=== PATIENT | female | born 2005 | race Caucasian/White ===

== ENCOUNTER 2024-04-02 01:36 | Observation (INO) ==
--- NOTE | 2024-04-02 01:52 | Emergency Department Note ---
History of Present Illness General Chief complaint: Shortness of Breath/Dyspnea Stated complaint: SOB, THROAT PAIN Time Seen by Provider: 04/02/24 01:44 History of Present Illness Maximum Pain Intensity: 9 This 18-year-old female presents ER complaining of sore throat and difficulty speaking for the past day. No history of TRANSIT SPECIALIST. Patient denies chest pain, vomiting, diarrhea, injury to the area. She states she is healthy with no active medical problems. Home Medications Medication Instructions Recorded Confirmed Type norgestimate-ethinyl estradiol 1 tab PO DAILY 04/02/24 04/02/24 History 0.18 mg/0.215mg/0.25mg-35 mcg(28)tablet (Tri-Sprintec (28)) Allergies Allergy/AdvReac Type Severity Reaction Status Date / Time No Known Allergies Allergy Mild Unverified 04 18:53 Past Med/Surg History Problem List (Updated 04/02/24 @ 04:42 by Courtney Rojo PA-C) Influenza A (Acute) Peritonsillar abscess (Acute) Social History Smoking Status: Never smoker Preferred Language: Chilean Feels Safe at Home: Yes Review of Systems A total of 10 systems reviewed and were otherwise negative Physical Exam Vital Signs Vital Signs - 24 hr 04/02/24 01:39 04/02/24 01:49 04/02/24 01:49 Temperature 37 C Temperature Source Temporal Artery Scan Pulse Rate 96 H Pulse Rate [Apical] Pulse Rhythm Regular Pulse Rhythm [Apical] Pulse Strength Normal Pulse Strength [Apical] Respiratory Rate 18 Respiratory Effort / Characteristics Non-Labored Spontaneous Non-Labored Respiratory Depth Normal Normal Respiratory Pattern Regular Blood Pressure 136/86 Blood Pressure [Right Arm] Blood Pressure Mean 102 Blood Pressure Mean [Right Arm] Blood Pressure Position Sitting Blood Pressure Position [Right Arm] Pulse Oximetry 97 Oxygen Delivery Method Room Air Room Air Sepsis Recent Fever Within 48 Hours No Sepsis New/Unexplained Change in Mental Status N/A Sepsis Action Taken by Nursing No Action Required 04/02/24 01:56 04/02/24 03:30 Temperature Temperature Source Pulse Rate 100 H Pulse Rate [Apical] 101 H Pulse Rhythm Pulse Rhythm [Apical] Regular Pulse Strength Pulse Strength [Apical] Normal Respiratory Rate 18 Respiratory Effort / Characteristics Non-Labored Spontaneous Respiratory Depth Normal Respiratory Pattern Regular Blood Pressure Blood Pressure [Right Arm] 119/78 Blood Pressure Mean Blood Pressure Mean [Right Arm] 91 Blood Pressure Position Blood Pressure Position [Right Arm] Semi-fowlers Pulse Oximetry 97 Oxygen Delivery Method Room Air Sepsis Recent Fever Within 48 Hours Sepsis New/Unexplained Change in Mental Status Sepsis Action Taken by Nursing VITALS: Vitals are noted on the nurse's note and reviewed by myself. Vital signs stable. GENERAL: Pleasant female with a hoarse voice, in no acute distress, nondiaphoretic, well-developed well-nourished. SKIN: The skin was without rashes, erythema, edema, or bruising. There is no tenting of the skin. Capillary reflex less than 2 seconds. HEAD: Normocephalic atraumatic. EARS: External auditory canals clear EYES: Pupils equal round and reactive to light and accommodation. Conjunctivae without injection, sclerae without icterus. Extraocular movements intact. NOSE: Patent, no discharge. MOUTH: Mucous membranes moist. Pharynx with erythema without exudate. Left tonsil erythematous and enlarged concerning for developing abscess, uvula midline. Airway patent. Tongue does not deviate. NECK: Supple without nuchal rigidity. Left submandibular and cervical lymphadenopathy. No thyromegaly. Cervical spine is nontender. No JVD. HEART: Regular rate and rhythm LUNGS: Clear to auscultation bilaterally without wheezes, rales or rhonchi. No retractions or accessory muscle use. ABDOMEN: Positive bowel sounds x 4. Normal tympanic percussion. Soft, nontender, without masses or organomegaly. Agrawal sign negative. No guarding or rebound tenderness. No CVA tenderness MUSCULOSKELETAL: No muscle atrophy, erythema, or edema noted. NEURO: Patient was alert and oriented to person place and time. Normal sensation to light and sharp touch. No focal neurological deficits. Course Administered Medications Discontinued Medications Dexamethasone (Dexamethasone Sod Inj 4 Mg/Ml Vial) 10 mg IV NOW STA Stop: 04/02/24 01:50 Last Admin: 04/02/24 01:59 Dose: 10 mg Documented By: VIVEK Ampicillin Sodium/Sulbactam Sodium (Unasyn) 3,000 mg in 100 mls @ 200 mls/hr IV NOW STA Stop: 04/02/24 02:18 Last Infusion: 04/02/24 03:05 Dose: Infused Documented By: Admin: 04/02/24 02:01 Dose: 200 mls/hr Documented By: VIVEK Sodium Chloride (Nss) 1,000 mls @ 999 mls/hr IV .Q1H1M ONE Stop: 04/02/24 02:52 Last Infusion: 04/02/24 03:05 Dose: Infused Documented By: Admin: 04/02/24 01:59 Dose: 999 mls/hr Documented By: VIVEK Ioversol (Optiray 320 100ml) 100 ml IV ONCE ONE Stop: 04/02/24 03:07 Last Admin: 04/02/24 03:06 Dose: 93 ml Documented By: KAYLA Ketorolac Tromethamine (Ketorolac Tromethamine 15 Mg/Ml Vial) 10 mg IV NOW STA Stop: 04/02/24 01:53 Last Admin: 04/02/24 02:01 Dose: 10 mg Documented By: VIVEK Medical Decision Making Medical Records Attestation: I reviewed the patient's medical records. Home Medications Current Medication List: was personally reviewed by me Laboratory Data Attestation: I reviewed the patient's lab results. 04/02/24 01:57 04/02/24 01:57 Lab Results 04/02/24 04/02/24 04/02/24 Range/Units 01:47 01:50 01:57 WBC 24.46 H (4.8-10.8) K/ul RBC 4.66 (4.20-5.40) M/uL Hgb 12.4 (12.0-16.0) g/dl Hct 38.1 (37.0-47.0) % MCV 81.8 (80.0-100.0) fL MCH 26.6 (25.0-34.0) pg MCHC 32.5 (32.0-36.0) g/dL RDW Std Deviation 37.9 (36.4-46.3) fL RDW Coeff of Enma 12.7 (11.5-14.5) % Plt Count 680 H (130-400) K/uL MPV 8.4 L (9.4-12.4) fL Immature Gran % (Auto) 1.3 % Neut % (Auto) 72.4 % Lymph % (Auto) 19.4 % Green % (Auto) 5.6 % Eos % (Auto) 0.9 % Baso % (Auto) 0.4 % Neut # (Auto) 17.70 H (1.40-6.50) K/uL Lymph # (Auto) 4.74 H (1.20-3.40) K/uL Green # (Auto) 1.38 H (0.11-0.59) K/uL Eos # (Auto) 0.21 (0.00-0.50) K/uL Baso # (Auto) 0.11 (0.00-0.20) K/uL Immature Gran # (Auto) 0.32 H (0.01-0.20) K/uL Sodium 140 (136-145) mmol/L Potassium 3.6 (3.5-5.1) mmol/L Chloride 104 (98-107) mmol/L Carbon Dioxide 26 (21-32) mmol/L Anion Gap 10 (3-11) BUN 8 (6-23) mg/dl Creatinine 0.62 (0.6-1.2) mg/dl Est Cr Clr Drug Dosing 119.3 ml/min eGFR 131.48 BUN/Creatinine Ratio 12.9 (10-20) Glucose 108 H (70-99(Fasting)) mg/dl Calcium 10.0 (8.6-10.3) mg/dl Total Bilirubin 0.4 (0.2-1.0) mg/dl AST 13 (13-39) U/L ALT 8 (7-52) U/L Alkaline Phosphatase 77 (34-104) U/L Total Protein 8.2 (6.0-8.3) gm/dl Albumin 4.1 (3.4-5.0) gm/dl Globulin 4.1 H (2.5-4.0) gm/dl Albumin/Globulin Ratio 1.0 (0.9-2) HCG, Qual Negative (Negative) Adenovirus (PCR) Not Detected (NotDetected) B. pertussis DNA (PCR) Not Detected (NotDetected) B.parapertussis DNA PCR Not Detected (NotDetected) C. pneumoniae DNA (PCR) Not Detected (NotDetected) Coronavirus OC43 (PCR) Not Detected (NotDetected) Coronavirus HKU1 (PCR) Not Detected (NotDetected) Coronavirus 229E (PCR) Not Detected (NotDetected) SARS-CoV-2 (PCR) Not Detected (NotDetected) Coronavirus NL63 (PCR) Not Detected (NotDetected) Human Metapneumovir PCR Not Detected (NotDetected) Influenza A Untype (PCR) DETECTED A (NotDetected) Influenza Type B (PCR) Not Detected (NotDetected) M. pneumoniae (PCR) Not Detected (NotDetected) Parainfluenza 1 (PCR) Not Detected (NotDetected) Parainfluenza 2 (PCR) Not Detected (NotDetected) Parainfluenza 3 (PCR) Not Detected (NotDetected) Parainfluenza 4 (PCR) Not Detected (NotDetected) RSV (PCR) Not Detected (NotDetected) Entero/Rhino (PCR) Not Detected (NotDetected) Group A Strep (PCR) NOT DETECTED (NotDetected) Imaging Data Attestation: I personally reviewed and interpreted this imaging study as follows: Radiologist's Impression: Soft Tissue Neck CT 04/02/24 01:49 EXAM: CT soft tissue neck w con CLINICAL HISTORY: Trismus, dysphagia, question left TRANSIT SPECIALIST. TECHNIQUE: CT scan of the neck was performed with administration of intravenous contrast. Sagittal and coronal reconstructions were obtained. 93 ml Optiray was administered for post-contrast images. One of the following dose reduction techniques were utilized for this exam: Automated exposure control, adjustment of the mA and/or kV according to patient size, and use of iterative reconstruction. Total DLP: 495 mGy*cm. COMPARISON: None. FINDINGS: Nasopharynx and Oropharynx:: An Ill-defined low-attenuation area measuring about 1.8 x 1.4 x 1.9 cm seen in the left peritonsillar region. It showed peripheral enhancement. Causing mild mass effect upon adjacent tissues and mild pharengeal narrowing. Larynx and Hypopharynx: Normal appearance of the laryngeal structures. Vocal cords are normal in appearance and movement. No masses or abnormal enhancement. Thyroid Gland: Normal size and morphology. No nodules or masses. Normal enhancement post-contrast. Salivary Glands: Parotid, submandibular, and sublingual glands are normal in size and appearance. No evidence of sialadenitis or masses. Lymph Nodes: Multiple enlarged upper deep cervical lymph nodes reaching about 2x2.5 cm on the right side level II. Vascular Structures: Normal enhancement of the carotid arteries, jugular veins, and other major vessels post-contrast. No evidence of vascular malformations, aneurysms, or thrombosis. Soft Tissues: Normal appearance of the soft tissues of the neck. No abnormal masses, swelling, or fluid collections. Bones: Normal appearance of the cervical spine and surrounding bony structures. No fractures, lytic or sclerotic lesions. Airway: Trachea and main bronchi are patent. No evidence of tracheal or bronchial stenosis or masses. IMPRESSION: 1. The above-described signs are suggestive of left peritonsillar abscess/necrotic area. Need clinical and lab correlation. 2. Mild cervical reactive lymphadenopathy. Electronically signed by Sulaiman Prado 04-02-2024 04:28 AM Chest X-Ray 04/02/24 01:52 EXAM: XR chest 1V portable CLINICAL HISTORY: Cough. TECHNIQUE: An X-ray image of the chest is obtained in AP projection. COMPARISON: No prior studies are available for comparison. FINDINGS: Pulmonary Parenchyma: Lungs are clear bilaterally. No evidence of consolidation, collapse, or focal opacities. No pulmonary nodules are identified. No evidence of pleural effusion or pleural thickening. Heart and Mediastinum: Heart size and shape are normal. No mediastinal widening or masses. No hilar or mediastinal lymphadenopathy. Bony Thorax: The bony thorax appears intact without fractures or deformities. Soft Tissues: Soft tissues overlying the chest wall are unremarkable. IMPRESSION: No acute cardiopulmonary abnormalities are identified. Electronically signed by Sulaiman Prado 04-02-2024 03:55 AM MDM Narrative Prior records/ancillary studies reviewed. Triage Nursing notes reviewed. Additional history obtained from nursing. The patient's history was concerning for a sore throat. Differential diagnosis: Etiologies such as viral syndrome, tonsillitis, streptococcal pharyngitis, mononucleosis, peritonsillar abscess, retropharyngeal abscess, otitis, pneumonia, influenza, as well as others were entertained. ER treatment provided: Unasyn, dexamethasone, IV fluids, Toradol On reassessment the patient felt better. Diagnostics interpreted by me: The labs Independently Interpreted by myself revealed leukocytosis, positive influenza A Imaging studies: Imaging was reviewed and read by radiology Consultation: A consultation was placed with ENT, Dr. Gonzalez and will evaluate the patient. He recommends medical admission Medicine was consulted and the case is discussed. Patient will be admitted to the medical service. This appears to be consistent with peritonsillar abscess he was also influenza A positive. Patient started antibiotics. She is given steroids. She was hydrated as above. ENT and medicine consulted. Patient will be admitted to the medical service. She is agreeable. She was placed on maintenance fluids. She was placed NPO. By the evaluation outlined above emergent etiologies such as retropharyngeal abscess, otitis, pneumonia, meningitis, urinary tract infection, sepsis, bacteremia, as well as others were deemed relatively unlikely. The pt informed about the findings as listed above. All questions were answered and pleased with the treatment. The chart was completed utilizing [employer] Speech voice recognition software. Grammatical errors, random word insertions, pronoun errors, and incomplete sentences are an occassional consequence of this system due to software limitations, ambient noise, and hardware issues. Any formal questions or concerns about the content, text, or information contained within the body of this dictation should be directly addressed to the physician clothing sales assistant for clarification. Impression & Plan Peritonsillar abscess, Influenza A Discharge Plan Visit Data Chief Complaint: Shortness of Breath/Dyspnea Stated Complaint: SOB, THROAT PAIN ED Provider: Toribio Buckner ED Midlevel Provider: Courtney Rojo Discharge Problem: Peritonsillar abscess, Influenza A Patient Disposition: Admitted As Inpatient Condition: Good Forms Stand Alone Forms: [facility] Prescriptions Prescriptions: No Action norgestimate-ethinyl estradiol [Tri-Sprintec (28)] 0.18/0.215/0.25 mg-35 mcg (28) tablet 1 tab PO DAILY Referrals Referrals: PCP,NO [Physician] -
[2024-04-02] MEDS: DEXAMETHASONE SOD INJ 4 MG/ML VIAL IV STA (01:59)
[2024-04-02] MEDS: SODIUM CHLORIDE 0.9% 1,000 ML IV ONE (01:59)
[2024-04-02] MEDS: AMPICILLIN/SULBACTAM SOD 3,000 MG/100 ML BAG IV STA (02:01)
[2024-04-02] MEDS: KETOROLAC TROMETHAMINE 15 MG/ML VIAL IV STA (02:01)
[2024-04-02 02:32] LABS: Basophils # (auto) 0.11 K/uL (0.00-0.20); Basophils % (auto) 0.4 %; Eosinophils # (auto) 0.21 K/uL (0.00-0.50); Eosinophils % (auto) 0.9 %; Hematocrit (blood only) 38.1 % (37.0-47.0); Hemoglobin 12.4 g/dl (12.0-16.0); Immature Granulocytes # (auto) 0.32 K/uL (0.01-0.20); Immature Granulocytes % (auto) 1.3 %; Lymphocytes # (auto) 4.74 K/uL (1.20-3.40); Lymphocytes % (auto) 19.4 %; Mean Corpuscular Hemoglobin 26.6 pg (25.0-34.0); Mean Corpuscular Hgb Conc 32.5 g/dL (32.0-36.0); Mean Corpuscular Volume 81.8 fL (80.0-100.0); Mean Platelet Volume 8.4 fL (9.4-12.4); Monocytes # (auto) 1.38 K/uL (0.11-0.59); Monocytes % (auto) 5.6 %; Neutrophils % (auto) 72.4 %; Platelet Count 680 K/uL (130-400); RDW Coefficient of Variation 12.7 % (11.5-14.5); RDW Standard Deviation 37.9 fL (36.4-46.3); Red Blood Count 4.66 M/uL (4.20-5.40); White Blood Count 24.46 K/ul (4.8-10.8)
[2024-04-02 02:36] LABS: Albumin Level 4.1 gm/dl (3.4-5.0); BUN Creatinine Ratio 12.9 (10-20); Bilirubin,Total 0.4 mg/dl (0.2-1.0); Creatinine Clr Calc Pharmacy 119.3 ml/min; Globulin 4.1 gm/dl (2.5-4.0); Potassium 3.6 mmol/L (3.5-5.1); Pregnancy Test, Serum Negative (Negative); Total Protein 8.2 gm/dl (6.0-8.3)
[2024-04-02 02:45] LABS: Adenovirus PCR Not Detected (NotDetected); Bordetella parapertussis PCR Not Detected (NotDetected); Bordetella pertussis PCR Not Detected (NotDetected); Chlamydia pneumoniae PCR Not Detected (NotDetected); Coronavirus 229E PCR Not Detected (NotDetected); Coronavirus CoV-2 (COVID19)PCR Not Detected (NotDetected); Coronavirus HKU1 PCR Not Detected (NotDetected); Coronavirus NL63 PCR Not Detected (NotDetected); Coronavirus OC43PCR Not Detected (NotDetected); Human Metapneumovirus PCR Not Detected (NotDetected); Influenza A NoSubtype PCR DETECTED (NotDetected); Influenza B PCR Not Detected (NotDetected); Mycoplasma pneumoniae PCR Not Detected (NotDetected); Parainfluenza Virus 1 PCR Not Detected (NotDetected); Parainfluenza Virus 2 PCR Not Detected (NotDetected); Parainfluenza Virus 3 PCR Not Detected (NotDetected); Parainfluenza Virus 4 PCR Not Detected (NotDetected); Respiratory Syncytial VirusPCR Not Detected (NotDetected); Rhinovirus/Enterovirus PCR Not Detected (NotDetected)
[2024-04-02] MEDS: OPTIRAY 320 100ml IV ONE (03:06)
--- NOTE | 2024-04-02 03:56 | XRay Report ---
EXAM: XR chest 1V portable CLINICAL HISTORY: Cough. TECHNIQUE: An X-ray image of the chest is obtained in AP projection. COMPARISON: No prior studies are available for comparison. FINDINGS: Pulmonary Parenchyma: Lungs are clear bilaterally. No evidence of consolidation, collapse, or focal opacities. No pulmonary nodules are identified. No evidence of pleural effusion or pleural thickening. Heart and Mediastinum: Heart size and shape are normal. No mediastinal widening or masses. No hilar or mediastinal lymphadenopathy. Bony Thorax: The bony thorax appears intact without fractures or deformities. Soft Tissues: Soft tissues overlying the chest wall are unremarkable. IMPRESSION: No acute cardiopulmonary abnormalities are identified. Electronically signed by Sulaiman Prado 04-02-2024 03:55 AM
--- NOTE | 2024-04-02 04:28 | CT Scan Report ---
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 TECHNIQUE: CT scan of the neck was performed with administration of intravenous contrast. Sagittal and coronal reconstructions were obtained. 93 ml Optiray was administered for post-contrast images. One of the following dose reduction techniques were utilized for this exam: Automated exposure control, adjustment of the mA and/or kV according to patient size, and use of iterative reconstruction. Total DLP: 495 mGy*cm. COMPARISON: None. FINDINGS: Nasopharynx and Oropharynx:: An Ill-defined low-attenuation area measuring about 1.8 x 1.4 x 1.9 cm seen in the left peritonsillar region. It showed peripheral enhancement. Causing mild mass effect upon adjacent tissues and mild pharengeal narrowing. Larynx and Hypopharynx: Normal appearance of the laryngeal structures. Vocal cords are normal in appearance and movement. No masses or abnormal enhancement. Thyroid Gland: Normal size and morphology. No nodules or masses. Normal enhancement post-contrast. Salivary Glands: Parotid, submandibular, and sublingual glands are normal in size and appearance. No evidence of sialadenitis or masses. Lymph Nodes: Multiple enlarged upper deep cervical lymph nodes reaching about 2x2.5 cm on the right side level II. Vascular Structures: Normal enhancement of the carotid arteries, jugular veins, and other major vessels post-contrast. No evidence of vascular malformations, aneurysms, or thrombosis. Soft Tissues: Normal appearance of the soft tissues of the neck. No abnormal masses, swelling, or fluid collections. Bones: Normal appearance of the cervical spine and surrounding bony structures. No fractures, lytic or sclerotic lesions. Airway: Trachea and main bronchi are patent. No evidence of tracheal or bronchial stenosis or masses. IMPRESSION: 1. The above-described signs are suggestive of left peritonsillar abscess/necrotic area. Need clinical and lab correlation. 2. Mild cervical reactive lymphadenopathy. Electronically signed by Sulaiman Prado 04-02-2024 04:28 AM
--- NOTE | 2024-04-02 04:41 | History & Physical Report ---
Date of Service April 02, 2024 Assessment & Plan (1) Peritonsillar abscess: (2) Leukocytosis: (3) Thrombocytosis: (4) Influenza A: Plan Patient is a 18-year-old female with no significant past medical history. She has had increasing throat pain and left ear pain for several days along with difficulty talking. She has been admitted for peritonsillar abscess. #peritonsillar abscess/ leukocytosis/thrombocytopenia soft tissue neck CT showed signs suggestive of left peritonsillar abscess/necrotic area along with mild cervical reactive lymphadenopathy strep negative, patient reported negative mono test 03/28 with [facility] Unasyn 3mg IV q6hr Tylenol prn, Toradol prn, and morphine 1 Mg (for pain not relieved by #1 and 2) given dexamethasone 10 Mg IV in ED; continue with dexamethasone 6 Mg IV daily N.p.o. IVF 1L NSS bolus in ED, continue with NSS at 80 mL/hour ENT consult - anticipate surgical management leukocytosis WBC 24.46 with neutrophil predominance and left shift on admission, 2/2 acute infection, not septic on admission Thrombocytopenia platelets 680 on admission; 2/2 acute infection, trend CBC #influenza A Patient with flulike symptoms since 03/20 - symptoms now resolved BioFire positive for influenza A and type on admission, subtype pending CXR negative Defer Tamiflu is outside window and symptoms are resolved Tylenol as needed isolation precautions VTE ppx: SCDs, defer chemical as able to ambulate and likely surgical management Diet: n.p.o. Dispo: MedSur Admission and Anticipated Discharge Date Admission Date: 04/02/24 History of Present Illness Chief Complaint: Shortness of breath Primary Care Provider: [facility] Patient is a 18-year-old female with no significant past medical history. She has had increasing throat pain and left ear pain for several days along with difficulty talking. She has been admitted for peritonsillar abscess. Patient seen at bedside. She was having extreme difficulty talking so limited history obtained. She had flulike symptoms from 03/20 to 03/21 and went to urgent care in which she tested negative for strep, flu, and COVID. She was having severe throat pain on 03/26 and went to [facility] 03/28 in which they suspected it was due to mono however she tested negative for mono 2 days later. Over the past few days she has had increasing throat pain and now left ear pain. She denies any fevers. She is feeling much better after receiving ED pain management. She does note a history of a lymphadenectomy me on her left side when she was roughly 1 years old. She denies fevers, chills, chest pain, shortness of breath, abdominal pain, nausea, vomiting, hearing loss. She denies past history of DM, COPD, asthma. Her only home medication is control. Patient is a [employer] student. Her mother is on her way and lives in [place] roughly 2 and half hours away. Allergies Allergy/AdvReac Type Severity Reaction Status Date / Time amoxicillin Allergy Rash Verified 04/02/24 10:59 Home Medications Medication Instructions Recorded Confirmed Type norgestimate-ethinyl estradiol 1 tab PO DAILY 04/02/24 04/02/24 History 0.18 mg/0.215mg/0.25mg-35 mcg(28)tablet (Tri-Sprintec (28)) cephalexin 500 mg capsule 500 mg PO Q6H 7 days #28 caps 04/03/24 Rx prednisone 10 mg tablet 10 mg PO DIRECTED #12 tabs 04/03/24 Rx Past Med/Surg History Problem List (Updated 04/02/24 @ 05:11 by Adenike Coffman PA-C) Thrombocytosis Leukocytosis Influenza A (Acute) Peritonsillar abscess (Acute) Social History Smoking Status: Never smoker Hx Alcohol Use: No Hx Substance Use: No Preferred Language: French Communication Ability: Effective Radiology Special Procedure Tech Required: No Beliefs That Will Affect Care: None Current Living Situation: Other Current Living Situation Comment: college dorms @ [employer] [facility] Feels Safe at Home: Yes Physical Exam Physical Exam: The patient is awake, alert and oriented 3, well developed and well nourished, normocephalic and atraumatic, in no acute distress. Non-toxic appearing. HEENT- EOMI, mucous membranes moist. Hearing grossly intact. Heart-normal S1 and S2. No murmurs, rubs or gallops. Lungs-clear bilaterally, no respiratory distress, no accessory muscle use. Abdomen-normal bowel sounds and soft. No ascites noted. Non-tender. Extremities- no clubbing, cyanosis, or edema. Rheumatologic-normal range of motion. Psychiatric-normal affect. ENMT: Mouth: + TMJ tender and + restricted motion of mouth Throat: + peritonsillar mass difficulty speaking Tenderness to left neck Results & Data Results & Data Vital Signs (Past 12 Hours) Vital Signs Temp Pulse Pulse Resp BP BP Pulse Ox 04/02/24 03:30 101 H 18 119/78 97 04/02/24 01:56 100 H 04/02/24 01:49 04/02/24 01:39 37 C 96 H 18 136/86 97 O2 Del Method 04/02/24 03:30 Room Air 04/02/24 01:56 04/02/24 01:49 Room Air 04/02/24 01:39 Room Air Laboratory Results CBC, CMP, hCG, BioFire Diagnostic Findings reviewed CXR and soft tissue neck CT Medications Administered ED3G Unasyn, 10 Mg IV Decadron, 10 Mg IV Toradol, 1L NSS bolus ECG Additional Comments: ordered Code Status & VTE Plan Code Status full VTE Prophylaxis Plan VTE Prophylaxis will be ordered: Yes Supervising Physician Co-Signing Physician Notes Attending addendum: I have physically seen this patient, have supervised the KETTY's activities, and agree with the H&P unless as otherwise noted. Assessment and Plan: The patient is a 18-year-old female with no significant past medical history, who presents to the emergency department with several days of worsening throat and left ear pain. Left peritonsillar abscess/leukocytosis- CT scan of soft tissue of neck suggestive of left peritonsillar abscess with necrotic area along with mild cervical reactive lymphadenopathy Strep screen negative Monotest negative on 03/28 at [facility] Unasyn 3 g IV every 6 hours Acetaminophen 1 g IV every 8 hours as needed for mild pain or fever Toradol 10 mg IV every 6 hours as needed for moderate pain Morphine sulfate 1 mg IV every 4 hours as needed for severe pain Status post dexamethasone 10 mg IV in ED, will continue dexamethasone 6 mg IV every morning N.p.o. Status post 1 L normal saline bolus in ED Continue NSS at 80 mL/h x 1 L Consult ENT Thrombocytopenia- Platelets 180 on admission Likely secondary to acute infection of influenza A Influenza A- Symptoms began 03/20 BioFire positive for influenza A this evening Outside the window for Tamiflu Symptomatic treatment otherwise as noted above PG Care Time/CCT Total # of Minutes Spent Total Time Spent with Patient: Total time spent is greater than 50% in coordination of care (as documented) at patient's floor/unit and/or counseling patient: Coding Level of Care Code 24735 INT INP/OBS CARE MIN Diagnoses Peritonsillar abscess J36 Leukocytosis D72.829 Thrombocytosis D75.839 Influenza A J10.1
[2024-04-02] MEDS: SODIUM CHLORIDE 0.9% 1,000 ML IV SCH ×2 (05:34→05:38)
--- NOTE | 2024-04-02 06:33 | History & Physical Report ---
Date of Service April 02, 2024 Assessment & Plan (1) Peritonsillar abscess: Plan: Have discussed options with the patient and she has agreed to incision and drainage of peritonsillar abscess in the OR under general anesthesia History of Present Illness Chief Complaint: sore throat Primary Care Provider: [facility] Patient is a 18 year old female with a 4 day history of a sore throat. She has no history of throat problems. The pain is worse on the left side. This makes it difficult to swallow. She has no airway problems. She is a nonsmoker. She has no other health issues. Allergies Allergy/AdvReac Type Severity Reaction Status Date / Time No Known Allergies Allergy Mild Unverified 04 18:53 Home Medications Medication Instructions Recorded Confirmed Type norgestimate-ethinyl estradiol 1 tab PO DAILY 04/02/24 04/02/24 History 0.18 mg/0.215mg/0.25mg-35 mcg(28)tablet (Tri-Sprintec (28)) Past Med/Surg History Problem List (Updated 04/02/24 @ 05:11 by Adenike Coffman PA-C) Thrombocytosis Leukocytosis Influenza A (Acute) Peritonsillar abscess (Acute) Social History Smoking Status: Never smoker Preferred Language: Tongan Feels Safe at Home: Yes Physical Exam Physical Exam: On examination she is alert and oriented and sitting up in bed. She has no difficulty with her airway. On examination of the throat she has peritonsillar swelling and redness on the left side pushing the tonsil medially. The airway is good. Respiratory: clear Cardiovascular: normal Results & Data Results & Data Vital Signs (Past 12 Hours) Vital Signs Temp Pulse Pulse Resp BP BP Pulse Ox 04/02/24 05:46 105 H 04/02/24 05:00 67 18 125/84 97 04/02/24 03:30 101 H 18 119/78 97 04/02/24 01:56 100 H 04/02/24 01:49 04/02/24 01:39 37 C 96 H 18 136/86 97 O2 Del Method 04/02/24 05:46 04/02/24 05:00 Room Air 04/02/24 03:30 Room Air 04/02/24 01:56 04/02/24 01:49 Room Air 04/02/24 01:39 Room Air Diagnostic Findings CT scan shows a peritonsillar swelling Code Status & VTE Plan VTE Prophylaxis Plan VTE Prophylaxis will be ordered: Yes PG Care Time/CCT Total # of Minutes Spent Total Time Spent with Patient: Total time spent is greater than 50% in coordination of care (as documented) at patient's floor/unit and/or counseling patient: [place] [address] INT INP/OBS CARE 2/55MIN Patient Type New History Problem Focused Exam Problem Focused Medical Decision Making Moderate Complexity Diagnoses Peritonsillar abscess J36
[2024-04-02] MEDS: ACETAMINOPHEN 1,000 MG/100 ML VIAL IV STA (06:48)
[2024-04-02] MEDS ORDERED: MoRPHine SULFATE 2 MG/ML CARP IV PRN (08:27)
[2024-04-02] MEDS ORDERED: ONDANSETRON INJ 2 MG/ML 2 ML VIAL IV PRN ×2 (08:27→11:29)
[2024-04-02] MEDS ORDERED: KETOROLAC TROMETHAMINE 15 MG/ML VIAL IV PRN (08:27)
[2024-04-02] MEDS: AMPICILLIN/SULBACTAM SOD 3,000 MG/100 ML BAG IV SCH (08:56)
--- NOTE | 2024-04-02 10:24 | Anesthesiology Consultation ---
Date of Service April 02, 2024 Assessment & Plan Chart Review Chart Review: Acceptable Risk for Surgery and Patient NOT seen in Pre Admission Testing Consults Requested none History Surgery Operation Date: 04/02/24 11:45 Proposed Procedures p Incision and Drainage Peritonsillar Abscess - Aaron Gonzalez MD Height/Weight Height: 5 ft 1 in Weight: 57.7 kg Allergies Allergy/AdvReac Type Severity Reaction Status Date / Time No Known Allergies Allergy Mild Unverified 04 18:53 Medications Home Medications Medication Instructions Recorded Confirmed Last Taken norgestimate-ethinyl estradiol 1 tab PO DAILY 04/02/24 04/02/24 Unknown 0.18 mg/0.215mg/0.25mg-35 mcg(28)tablet (Tri-Sprintec (28)) Active Medications Generic Name Dose Route Start Last Admin Trade Name Freq PRN Reason Stop Dose Admin Sodium Chloride 1,000 mls @ 80 mls/hr 04/02/24 05:00 04/02/24 05:38 Nss IV 04/03/24 04:59 80 mls/hr .[id number] SARAN Administration Ampicillin Sodium/Sulbactam Sodium 3,000 mg in 100 mls @ 200 mls/hr 04/02/24 09:00 04/02/24 08:56 Unasyn IV 04/12/24 08:59 200 mls/hr Q6H SARAN Administration Social History Smoking Status: Never smoker Physical Exam Vital Signs Last Vital Signs Temp 37 C 04/02/24 01:39 Pulse 97 H 04/02/24 09:58 Resp 18 04/02/24 09:58 BP 122/78 04/02/24 09:58 Pulse Ox 97 04/02/24 09:58 O2 Del Method Room Air 04/02/24 09:58 Testing Laboratory Results 04/02/24 01:57 04/02/24 01:57
[2024-04-02] MEDS ORDERED: MIDAZOLAM HCL 1 MG/ML 2ML VIAL ONE (10:27)
[2024-04-02] MEDS ORDERED: LIDOCAINE 2% 2 ML VIAL/AMP(20MG/ML) INFIL ONE (10:27)
[2024-04-02] MEDS ORDERED: fentaNYL citrate PF 100 MCG/2 ML VIAL ONE (10:27)
[2024-04-02] MEDS ORDERED: DEXAMETHASONE SOD INJ 4 MG/ML VIAL ONE ×2 (10:27→11:53)
[2024-04-02] MEDS ORDERED: PROPOFOL IV EMULSION 10 MG/ML 20 ML VIAL IV ONE ×2 (10:27→11:23)
[2024-04-02] MEDS ORDERED: ONDANSETRON INJ 2 MG/ML 2 ML VIAL ONE ×2 (10:27→11:53)
[2024-04-02] MEDS ORDERED: DROPERIDOL 5 MG/2 ML VIAL IV PRN (11:07)
[2024-04-02] MEDS ORDERED: ATROPINE SULFATE 0.1 MG/ML 10ML SYR IV PRN (11:07)
[2024-04-02] MEDS ORDERED: ePHEDrine sulfate 50 MG/ML AMP IV PRN (11:07)
[2024-04-02] MEDS: LIDOCAINE 1%/EPINEPHRINE 1:100,000 50 ML VIAL INFIL ONE (11:22)
[2024-04-02] MEDS: BUPIVACAINE/EPINEPHRINE 0.5% MPF 1:200,000 30 ML VIAL ONE (11:22)
--- NOTE | 2024-04-02 11:27 | Post Operative Brief Note ---
PG Immediate Post Op with CF Date of Surgery April 02, 2024 Pre & Post Diagnosis Operation Date: 04/02/24 11:45 Pre-Op Diagnosis: Pertisonsillar Abscess Post-Op Diagnosis: Pertisonsillar Abscess I identified the patient and participated in the time-out.: Yes Procedure Operation Date: 04/02/24 11:45 <No data on this case meets the specified criteria> Surgeon Aaron Gonzalez MD Business Process Modeler none Estimated Blood Loss 0 Findings Consistent with Post-Op Diagnosis left peritonsillar abscess
--- NOTE | 2024-04-02 11:29 | Operative Report ---
PG Post Operative Report Pre & Post Diagnosis Operation Date: 04/02/24 11:45 Pre-Op Diagnosis: Pertisonsillar Abscess Post-Op Diagnosis: Pertisonsillar Abscess I identified the patient and participated in the time-out.: Yes Procedure Operation Date: 04/02/24 11:45 <No data on this case meets the specified criteria> Surgeon Aaron Gonzalez MD Buffer Chrome none Estimated Blood Loss 0 Findings Consistent with Post-Op Diagnosis Specimens none Description of Procedure Under general anesthesia with the patient intubated. Infiltrated with lidocaine and epinephrine Incision made anterior superior blunt dissection opened a small abscess and drained Tolerated well No blood loss I attest to the content of the Intraoperative Record and any orders documented therein. Any exceptions are noted below.
[2024-04-02] MEDS ORDERED: ACETAMINOPHEN W/CODEINE #3 1 TAB PO PRN (11:36)
[2024-04-02] MEDS: fentaNYL citrate PF 100 MCG/2 ML VIAL IV PRN (11:48)
--- NOTE | 2024-04-02 12:35 | History & Physical Bridge Note ---
Date of Service April 02, 2024 History & Physical Bridge Note I have examined the patient, reviewed the History & Physical and in the interval since the performance of the History & Physical I have noted the following changes of clinical significance: no changes noted Latricia is a 18 yo F with no significant pmhx who presented with peritonsillar abscess and also tested positive for Flu A. She noted symptoms of fever/chills and malaise days ago and did not receive her flu shot this year. She is currently receiving Unasyn 3g IV q6 and Dex 6mg IV daily with plans for I&D of her peritonsillar abscess today (04/02) with Dr. Gonzalez. Her pain is controlled and she is able to clear secretions and denies breathing difficulty. WBC this AM 24 with left shift and thrombocytosis consistent with mod-severe infection. On exam, she is awake and alert. Hot potato voice noted, no stridor noted. Lungs are clear and heart is regular. Marked tonsillar adenopathy with tenderness to palpation. Both tonsils significantly enlarged. Belly soft and nontender with normoactive BS throughout. Continue with treatment as ordered with plans for I&D today. Repeat labs in AM. Anticipate can be discharged home with transitioned course of IV antibiotics to oral. Plan d/w Dr. Hernadez who is in agreement.
--- NOTE | 2024-04-02 12:36 | Anesthesiology Progress Note ---
Date of Service April 02, 2024 Anesthesia Post Procedure Vital Signs Vital Signs: Temp Pulse Pulse Pulse Resp BP BP 04/02/24 12:25 36.7 C 93 H 16 124/84 04/02/24 12:10 36.2 C L 91 H 15 119/78 04/02/24 12:00 84 13 127/78 04/02/24 11:50 89 13 119/77 04/02/24 11:44 36.3 C L 94 H 13 121/91 04/02/24 10:48 37.1 C 115 H 16 04/02/24 09:58 97 H 18 04/02/24 07:00 108 H 18 04/02/24 05:46 105 H 04/02/24 05:00 67 18 04/02/24 03:30 101 H 18 04/02/24 01:56 100 H 04/02/24 01:49 04/02/24 01:39 37 C 96 H 18 136/86 BP Pulse Ox O2 Del Method O2 Flow Rate 04/02/24 12:25 95 Room Air 04/02/24 12:10 99 Room Air 04/02/24 12:00 99 Oxymask 5 04/02/24 11:50 99 Oxymask 5 04/02/24 11:44 100 Oxymask 5 04/02/24 10:48 119/83 99 Room Air 04/02/24 09:58 122/78 97 Room Air 04/02/24 07:00 115/83 97 Room Air 04/02/24 05:46 04/02/24 05:00 125/84 97 Room Air 04/02/24 03:30 119/78 97 Room Air 04/02/24 01:56 04/02/24 01:49 Room Air 04/02/24 01:39 97 Room Air Pain Intensity Other: Pain Intensity: 4 Transfer of Care Handoff Completed per policy Notes Mental Status: alert / awake / arousable Patient Amnestic to Procedure: Yes Nausea / Vomiting: adequately controlled Pain: adequately controlled Airway Patency, RR, SpO2: stable & adequate BP & HR: stable & adequate Hydration State: stable & adequate Anesthetic Complications: no major complications apparent and Pt Satisfied with anesthetic care
[2024-04-02] MEDS: ACETAMINOPHEN 1,000 MG/100 ML VIAL IV PRN (12:53)
[2024-04-02] MEDS: dexAMETHasone 6 MG in SYRINGE 0 ML IV SCH (14:27)
[2024-04-02 23:13] VITALS: RESP 16
[2024-04-03 03:22] VITALS: O2SAT 98
[2024-04-03 07:02] LABS: Basophils # (auto) 0.04 K/uL (0.00-0.20); Basophils % (auto) 0.2 %; Eosinophils # (auto) 0.02 K/uL (0.00-0.50); Eosinophils % (auto) 0.1 %; Hematocrit (blood only) 32.1 % (37.0-47.0); Hemoglobin 10.6 g/dl (12.0-16.0); Immature Granulocytes # (auto) 0.25 K/uL (0.01-0.20); Immature Granulocytes % (auto) 1.4 %; Lymphocytes # (auto) 4.86 K/uL (1.20-3.40); Lymphocytes % (auto) 26.4 %; Mean Corpuscular Volume 81.9 fL (80.0-100.0); Mean Platelet Volume 8.4 fL (9.4-12.4); Monocytes # (auto) 0.92 K/uL (0.11-0.59); Neutrophils # (auto) 12.35 K/uL (1.40-6.50); Neutrophils % (auto) 66.9 %; Platelet Count 635 K/uL (130-400); RDW Coefficient of Variation 12.9 % (11.5-14.5); RDW Standard Deviation 38.5 fL (36.4-46.3); Red Blood Count 3.92 M/uL (4.20-5.40); White Blood Count 18.44 K/ul (4.8-10.8)
[2024-04-03 07:12] VITALS: BP 116/76; PULSE 71; TEMP 98.2
[2024-04-03 07:23] LABS: Calcium 9.2 mg/dl (8.6-10.3); Potassium 4.3 mmol/L (3.5-5.1)
[2024-04-03 07:28] LABS: BUN Creatinine Ratio 17.6 (10-20)
--- NOTE | 2024-04-03 08:29 | Hospitalist Progress Note ---
Date of Service April 03, 2024 Assessment & Plan (1) Peritonsillar abscess: Plan: Patient is a 18-year-old female with no significant past medical history. Presented with increasing throat pain, left ear pain for several days along with difficulty talking oral intake. Given Dexamethasone 10mg IV in ER #peritonsillar abscess/ leukocytosis/thrombocytopenia CT soft tissue of the neck noting signs suggestive of left peritonsillar abscess/necrotic area along with mild cervical reactive lymphadenopathy Strep NEGATIVE, negative mono test w/ [facility] reported on 03/28 +Flu testing on biofire ENT consulted, Dr Gonzalez s/p ID on 04/02 Unasyn IV continued Dexamethasone 6mg IV daily Pain control: Tylenol, morphine WBC trending down, 24.4k--> 18.4k, platelets improving Possible dc today vs tomorrow pending exam/status, likely continuation of PO abx at dc. Notable allergy listed to Amoxicillin w/ rash however on Unasyn? == ?true allergy if not having issues tolerating this could consider augmentin at dc? vs alternative (2) Influenza A: Plan: #influenza A Patient with flulike symptoms since 03/20 - symptoms now resolved [facility] positive for influenza A and type on admission, subtype pending CXR negative Defer Tamiflu is outside window and symptoms are resolved Tylenol as needed isolation precautions (3) Leukocytosis: Plan: leukocytosis WBC 24.46 with neutrophil predominance and left shift on admission, 2/2 acute infection, not septic on admission Thrombocytopenia platelets 680 on admission; 2/2 acute infection, trend CBC (4) Thrombocytosis: Plan VTE ppx: SCDs, defer chemical as able to ambulate and likely surgical management Diet: n.p.o. Dispo: MedSurg Admission and Anticipated Discharge Date Admission Date: April 02, 2024 Results & Data Results & Data Vital Signs (Past 12 Hours) Vital Signs Temp Pulse Resp BP Pulse Ox O2 Del Method 04/03/24 07:11 36.8 C 71 16 116/76 98 Room Air 04/03/24 03:21 36.7 C 62 16 107/68 98 Room Air 04/02/24 23:13 36.7 C 82 16 107/66 97 Room Air PG Care Time/CCT Total # of Minutes Spent Total Time Spent with Patient: Total time spent is greater than 50% in coordination of care (as documented) at patient's floor/unit and/or counseling patient: Coding Diagnoses Peritonsillar abscess J36 Influenza A J10.1 Leukocytosis D72.829 Thrombocytosis D75.839
--- NOTE | 2024-04-03 10:34 | Discharge Summary ---
Discharge Summary Date of Service April 03, 2024 Principal Dx & Hospital Course #1 = Principal Diagnosis (1) Peritonsillar abscess: #peritonsillar abscess/ leukocytosis/thrombocytopenia 18-year-old female with no significant past medical history presented with increasing throat pain, left ear pain for several days along with difficulty talking oral intake. CT soft tissue of the neck noting signs suggestive of left peritonsillar abscess/necrotic area along with mild cervical reactive lymphadenopathy Given Dexamethasone 10mg IV in ER Strep NEGATIVE, negative mono test w/ [facility] reported on 03/28 +Flu testing on biofire, defer on tamiflu as likely outside of window Unasyn IV while inpatient with pain control ENT consulted, Dr Gonzalez s/p ID on 04/02 Dexamethasone 6mg IV daily continued with prednisone taper at dc planned: 10mg tid, x2 bid x 2 days, 10mg x 2 days. WBC trending down, 24.4k--> 18.4k, platelets improving Discussed w/ patient as did tolerate Unasyn without rash but allergy listed to amoxicilin with rash and per supervising provider, dc on Cephalexin 500mg QID (along with taper as above). No stridor, 98% on RA prior to dc and tolerating diet. Rx for school note provided. Updated mom at bedside, discussed control ineffective on abx. Return sx discussed. (2) Influenza A: #influenza A Patient with flulike symptoms since 03/20 - symptoms now resolved BioFire positive for influenza A and type on admission -Defer Tamiflu is outside window CXR negative Tylenol as needed isolation precautions while inpatient (3) Leukocytosis: improved along w/ platelets with tx above outpt f/u S recommended (4) Thrombocytosis: Plan Notes For Next Care Provider ensure ENT f/u on 04/05 as discussed with patient monitor for any worsening/return to ER sx discussed Medication Changes From Visit Cephalexin 500mg QID to complete course Prednisone taper 10mg TID x 2 days, 10mg BID x 2 days, 10mg x 2 days to complete taper Admission HPI Per Admitting Provider Patient is a 18 year old female with a 4 day history of a sore throat. She has no history of throat problems. The pain is worse on the left side. This makes it difficult to swallow. She has no airway problems. She is a nonsmoker. She has no other health issues. Admission Exam Per Admitting Provider The patient is awake, alert and oriented 3, well developed and well nourished, normocephalic and atraumatic, in no acute distress. Non-toxic appearing. HEENT- EOMI, mucous membranes moist. Hearing grossly intact. Heart-normal S1 and S2. No murmurs, rubs or gallops. Lungs-clear bilaterally, no respiratory distress, no accessory muscle use. Abdomen-normal bowel sounds and soft. No ascites noted. Non-tender. Extremities- no clubbing, cyanosis, or edema. Rheumatologic-normal range of motion. Psychiatric-normal affect. ENMT: Mouth: + TMJ tender and + restricted motion of mouth Throat: + peritonsillar mass difficulty speaking Tenderness to left neck Discharge Exam General: 18yo female sitting up in bed, mother in room, NAD, wanting to go home HEENT: slight decreased ROM to mouth with opening (however much improved), slight tenderness on the left neck, no abscess appreciated, no drainage from mouth, slight petechiae to throat but uvula midline/no deviation Resp: even/unlabored, no wheezing/rales, no tachypnea/cough, 98% on RA, no stridor CV: RRR< no significant m/r/g, no pitting edema/calf tenderness GI: +BS, soft/NT ; no joshi MSK/Neuro: nonfocal, not confused, moves all extremities, answering questions appropriately Psych: AOx3, cooperative with exam Discharge Plan Discharge Items Patient Disposition: Home - Self-Care Reason For Visit: PERITONSILLAR ABSCESS Discharge Diagnosis: Peritonsillar Abscess Condition on Discharge: Good Goals: You have been hospitalized for an urgent problem which required surgery. During your stay at [facility], we have made an effort to correct the problem that brought you to the hospital while keeping you as comfortable as possible. Surgery and medications were used to bring your condition under control and your discharge instructions will include directions for any medications you should take after leaving the hospital. Please make sure to follow the advice of your surgeon regarding follow up with the surgeon and with your primary care provider. Activity: As commented below Non-emergency contact: Primary Care Provider and Specialist Call non-emergency contact if: you have any medication questions, your symptoms worsen, your pain is not controlled, your pain is worsening and you have a fever Follow-up/Referrals: [facility] [Primary Care Provider] - Aaron Gonzalez MD [Physician] - 04/05/24 9:30 am Diet: Regular Addtl Attending Provider Instructions: You have been hospitalized for difficulty swallowing. Strep testing was negative but flu testing was positive. ENT was consulted as there was evidence for a peritonsillar abscess that underwent drainage. You were provided with IV antibiotics and are being sent home on cephalexin 500mg four times daily (noting control not as effective on antibiotics as discussed). You are also being sent on prednisone taper: 10mg by mouth three times daily x 2 days, then decrease to 10mg twice daily x 2 days then once daily x 2 days to complete the taper. Follow up with Dr Gonzalez is on 04/05. Please also follow up with [facility] after discharge to monitor your progress. Please return to the ER with any increased pain/swelling or difficulty swallowing, shortness of breath, or for any other symptoms concerning for you. It has been a pleasure being a part of the medical team providing for you while you have been in the hospital. Take care! Pending Studies at Discharge: Yes Stand-Alone Forms: My [facility] webme, Work/School Release, Smoking Cessation Medications and DC Order Prescriptions: New cephalexin 500 mg capsule 500 mg PO Q6H 7 Days Qty: 28 0RF prednisone 10 mg tablet 10 mg PO DIRECTED Qty: 12 0RF Rx Instructions: see taper instructions Continued norgestimate-ethinyl estradiol [Tri-Sprintec (28)] 0.18/0.215/0.25 mg-35 mcg (28) tablet 1 tab PO DAILY Discharge Orders: Discharge Order (Routine); Ordered 04/02/24 Ordered By: Aaron Duenas/Other Patient Handouts: ED Influenza (Adult), ED Peritonsillar Abscess Admission Data Admit Date/Time: 04/02/24 05:07 Attending Provider: Vernon Miranda Admit Provider: Jeffy Beard Primary Care Provider: [facility] Other Providers: Aaron Gonzalez; Jeffy Beard Other Interventions: Discharge Summary Assessment (RN) Last Done: 04/03/24 10:50 Hospital Stay Data Consultations 04/02/24 04:40 Consult Otolaryngology (Head and Neck) Stat ED Decision to Admit Stat Procedures Performed Operation Date: 04/02/24 11:45 Actual Procedures p Incision and Drainage Peritonsillar Abscess(Not Applicable) - Aaron Gonzalez MD Diagnostic Imagining Performed Soft Tissue Neck CT 04/02/24 01:49 EXAM: CT soft tissue neck w con CLINICAL HISTORY: Trismus, dysphagia, question left ASP NET DEVELOPER. TECHNIQUE: CT scan of the neck was performed with administration of intravenous contrast. Sagittal and coronal reconstructions were obtained. 93 ml Optiray was administered for post-contrast images. One of the following dose reduction techniques were utilized for this exam: Automated exposure control, adjustment of the mA and/or kV according to patient size, and use of iterative reconstruction. Total DLP: 495 mGy*cm. COMPARISON: None. FINDINGS: Nasopharynx and Oropharynx:: An Ill-defined low-attenuation area measuring about 1.8 x 1.4 x 1.9 cm seen in the left peritonsillar region. It showed peripheral enhancement. Causing mild mass effect upon adjacent tissues and mild pharengeal narrowing. Larynx and Hypopharynx: Normal appearance of the laryngeal structures. Vocal cords are normal in appearance and movement. No masses or abnormal enhancement. Thyroid Gland: Normal size and morphology. No nodules or masses. Normal enhancement post-contrast. Salivary Glands: Parotid, submandibular, and sublingual glands are normal in size and appearance. No evidence of sialadenitis or masses. Lymph Nodes: Multiple enlarged upper deep cervical lymph nodes reaching about 2x2.5 cm on the right side level II. Vascular Structures: Normal enhancement of the carotid arteries, jugular veins, and other major vessels post-contrast. No evidence of vascular malformations, aneurysms, or thrombosis. Soft Tissues: Normal appearance of the soft tissues of the neck. No abnormal masses, swelling, or fluid collections. Bones: Normal appearance of the cervical spine and surrounding bony structures. No fractures, lytic or sclerotic lesions. Airway: Trachea and main bronchi are patent. No evidence of tracheal or bronchial stenosis or masses. IMPRESSION: 1. The above-described signs are suggestive of left peritonsillar abscess/necrotic area. Need clinical and lab correlation. 2. Mild cervical reactive lymphadenopathy. Electronically signed by Sulaiman Prado 04-02-2024 04:28 AM Chest X-Ray 04/02/24 01:52 EXAM: XR chest 1V portable CLINICAL HISTORY: Cough. TECHNIQUE: An X-ray image of the chest is obtained in AP projection. COMPARISON: No prior studies are available for comparison. FINDINGS: Pulmonary Parenchyma: Lungs are clear bilaterally. No evidence of consolidation, collapse, or focal opacities. No pulmonary nodules are identified. No evidence of pleural effusion or pleural thickening. Heart and Mediastinum: Heart size and shape are normal. No mediastinal widening or masses. No hilar or mediastinal lymphadenopathy. Bony Thorax: The bony thorax appears intact without fractures or deformities. Soft Tissues: Soft tissues overlying the chest wall are unremarkable. IMPRESSION: No acute cardiopulmonary abnormalities are identified. Electronically signed by Sulaiman Prado 04-02-2024 03:55 AM Discharge Instructions Given to Patient (Per Discharging Provider) You have been hospitalized for difficulty swallowing. Strep testing was negative but flu testing was positive. ENT was consulted as there was evidence for a peritonsillar abscess that underwent drainage. You were provided with IV antibiotics and are being sent home on cephalexin 500mg four times daily (noting control not as effective on antibiotics as discussed). You are also being sent on prednisone taper: 10mg by mouth three times daily x 2 days, then decrease to 10mg twice daily x 2 days then once daily x 2 days to complete the taper. Follow up with Dr Gonzalez is on 04/05. Please also follow up with [facility] after discharge to monitor your progress. Please return to the ER with any increased pain/swelling or difficulty swallowing, shortness of breath, or for any other symptoms concerning for you. It has been a pleasure being a part of the medical team providing for you while you have been in the hospital. Take care! Supervising Physician Co-Signing Physician Notes The patient was not seen by me. The chart was reviewed. Case discussed with CORA Tomlin. Agree with assessment and plan Total Time Total Time Spent Total Time Spent (In Minutes): 45 Coding Level of Care Code 28011 INP/OBS DISCH >30 MIN Diagnoses Peritonsillar abscess J36 Influenza A J10.1 Leukocytosis D72.829 Thrombocytosis D75.839
--- NOTE | 2024-04-04 09:53 | Coding Query ---
CODING QUERY To promote full compliance with coding requirements relating to patient care, provider participation is requested in all cases of conductor/engineer uncertainty. Please assist us with the question(s) below: Coding Question(s): There is documentation of Influenza A, and documentation of Peritonsillar Abscess with increasing throat pain, and sore throat, She has had increasing throat pain and left ear pain for several days along with difficulty talking". There is also documentation of, " #influenza A Patient with flulike symptoms since 03/20 - symptoms now resolved". It is not clear if the Peritonsillar Abscess is a manifestation of Influenza A, or not. Please specify below, in your clinical opinion: ( ) Peritonsillar Abscess is likely a manifestation of Influenza A ( x ) Peritonsillar Abscess is Not a manifestation of Influenza A Physician's Response(s): Thank you Nita Graves Principal Diagnosis: "that condition established after study, to be chiefly responsible for occasioning the admission of the patient to the hospital for care." Co-Existing Principal Diagnosis: "when two or more diagnoses equally meet the criteria for principal diagnosis as determined by the circumstances of admission, diagnostic work up, and/or therapy provided, and the Alphabetic Index, Tabular List, or another coding guideline does not provide sequencing direction, any one of the diagnoses may be sequenced first." "When the physician has documented what appears to be a current diagnosis in the body of the record, but has not included the diagnosis in the final diagnostic statement, the physician should be asked whether the diagnosis should be added." (Source Coding [facility] 2 QTR90. p3-4) AMARI
== END 2024-04-03 11:01 | disposition home or self-care (01) | DRG 145 ==
LOC: SUATTDRO → ED 01:36 → EDINP 05:07 → SUATTDRO 05:07 → INTOOBSV 05:07 → EDINP 11:23 → 3E 12:44
DX: Z79.3 Long term (current) use of hormonal contraceptives; D69.59 Other secondary thrombocytopenia; J36 Peritonsillar abscess; J10.1 Influenza due to other identified influenza virus with other respiratory manifestations